=== PATIENT | female | born 1940 | race Caucasian/White ===

== ENCOUNTER 2019-03-08 19:06 | Inpatient (IN) ==
[2019-03-08] MEDS ORDERED: TORADOL IV ONE (21:07)
[2019-03-08] MEDS ORDERED: BENADRYL IV ONE (21:08)
[2019-03-08] MEDS ORDERED: COMPAZINE IV ONE (21:08)
[2019-03-08 21:27] LABS: BASO# 0.02 X1000 (0.0-0.2); BASO% 0.2 % (0.0-0.8); HEMATOCRIT 39.2 % (37.0-47.0); HEMOGLOBIN 13.8 g/dL (12.0-16.0); IMM GRAN# 0.02 X1000 (0.0-0.04); IMM GRAN% 0.2 % (0.0-0.5); LYMPH# 1.45 X1000 (1.2-3.4); LYMPH% 14.7 % (20.5-51.1); MCH 29.2 PG (27-31); MCHC 35.2 g/dL (33-37); MCV 83.1 FL (81-99); MONO# 0.32 X1000 (0.11-0.59); MONO% 3.2 % (1.7-9.3); NEUT# 8.08 X1000 (1.4-6.5); NEUT% 81.7 % (42.2-75.2); PLT 488 X1000 (130-400); RBC 4.72 XMIL (4.2-5.4); RDW 13.4 % (11.5-14.5); WBC 9.89 X1000 (4.8-10.8)
[2019-03-08 22:03] LABS: CALCIUM 10.9 mg/dL (8.8-10.2); POTASSIUM 3.8 mmol/L (3.5-5.1)
[2019-03-08 23:28] LABS: URINE SOURCE CATH
[2019-03-08 23:37] LABS: BILIRUBIN URINE NEGATIVE (NEGATIVE); BLOOD URINE NEGATIVE (NEGATIVE); COLOR YELLOW; GLUCOSE URINE NEGATIVE (NEGATIVE); KETONE URINE 40 mg/dL (NEGATIVE); LEUKOCYTES URINE NEGATIVE (NEGATIVE); NITRITE URINE NEGATIVE (NEGATIVE); PH URINE 5.5; PROTEIN URINE TRACE mg/dL (NEGATIVE); SP GRAVITY URINE 1.013; TURBIDITY URINE CLEAR (CLEAR); UROBILINOGEN URINE NORMAL (NORMAL)
[2019-03-08 23:40] LABS: UR EPITHELIAL CELLS <10 /HPF (<10); URINE BACTERIA NEGATIVE /HPF; URINE RBC <10 /HPF (<10); URINE WBC <10 /HPF (<10)
--- NOTE | 2019-03-08 23:57 | PROVIDER DOCUMENTATION ---
This chart was entered by Kiara Lara Scribe, acting as scribe for Caryn Hill MD. HPI-Headache - General Chief Complaint: Headache Stated Complaint: MIGRAINE/CONFUSSED Time Seen by Provider: 03/08/19 20:48 Source: patient Allergies/Adverse Reactions: Patient Allergies Allergy/AdvReac Type Severity Reaction Status Date / Time No Known Allergies Allergy Verified 03/08/19 21:09 Home Medications: Home Medication List Medication Instructions Recorded Confirmed Last Taken Type Unobtainable [Home Meds 03/08/19 03/08/19 Unknown History Unobtainable] - History of Present Illness-Headache Nature of Presenting Problem: 78 yof presents w/ family at bedside c/o pt family historian. pt has long hx of migraines and has had 1 migraine/day intermittent for 1 month. pt woke up other day from migraine and had bloodshot eye. pt confusion is worsening, family sts. pt wants to talk sometimes but cannot form words but after a few min can speak. pt is sensitive to light. 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 pt had recent mri w/dr. martinez and was normal. pt sts that she has pain in top of head rad down neck and is nauseous. pt denies fever, v/d. pt has hx of htn, takes 4 diff rx for htn. Review of Systems - Adult - REVIEW OF SYSTEMS - ADULT Constitutional: reports: no symptoms reported. denies: chills, fever, fatique Eyes: reports: see HPI, eye pain (photophobic). denies: discharge, dry eyes, blurred vision Ears, Nose, Mouth & Throat: reports: no symptoms reported. denies: ear pain, nose pain, throat pain Cardiovascular: reports: no symptoms reported. denies: chest pain, heart murmur, poor circulation Respiratory: reports: no symptoms reported. denies: cough, shortness of breath, wheezing Gastrointestinal: reports: see HPI, nausea. denies: abdominal pain, diarrhea, rectal bleeding, vomiting Genitourinary: reports: no symptoms reported Musculoskeletal: reports: no symptoms reported Integumentary: reports: no symptoms reported Neurological: reports: see HPI, headache/migraines, other (confusion). denies: loss of balance, numbness, seizure, syncope, tremors Psychiatric: reports: no symptoms reported Endocrine: reports: no symptoms reported Hematologic/Lymphatic: reports: no symptoms reported Allergic/Immunologic: reports: no symptoms reported All Other Systems: Reviewed and Negative Past History - Adult - PAST MEDICAL HISTORY-ADULT Review of Records: reports: Old Records Reviewed, Nursing Assessment Review, Medications Reviewed, Social history reviewed & non-contributory. Major Childhood Illnesses: reports: denies history Cardiovascular: reports: HTN Respiratory: reports: denies history Gastrointestinal: reports: denies history Obstetrical/Gynecological: reports: denies history Genitourinary: reports: denies history Musculoskeletal: reports: denies history Neurological: reports: headaches/migraines Endocrine/Immune: reports: denies history Other Conditions: reports: denies history - IMMUNIZATION STATUS Childhood Immunizations: See Nurse Assessment Flu Vaccine: See Nurse Assessment - FAMILY HISTORY Family History: reviewed, not pertinent Physical Exam- Neurological - Physical Exam-Neuro Initial Vital Signs Reviewed: Yes General Appearance: alert, mild distress, slow to respond. negative: lethargic, obtunded, combative Eye Exam: bilateral eye: normal inspection, PERRL, EOMI HENMT: normocephalic/atraumatic, moist mucous membranes, normal ENT inspection, TMs normal, pharynx normal Head Injury: no evidence of injury. negative: ecchymosis, flap, lacerations Neck: non-tender, full range of motion, supple, normal inspection Respiratory: chest non-tender, lungs clear, normal breath sounds Cardiovascular: normal peripheral pulses, regular rate, rhythm, no edema, no gallop, no JVD, systolic murmur. negative: no murmur, JVD, bradycardia, tachycardia Abdominal Exam: normal bowel sounds, non tender, soft Lymphatic: no adenopathy Peripheral Pulses: radial (R): 2+, radial (L): 2+ Extremity: normal range of motion, non-tender, normal inspection stem setter Exam: normal hearing, normal speech, PERRL. negative: abnormal eye position, abnormal speech, facial asymmetry, facial droop, gaze palsy, tongue deviation to R, tongue deviation to L Coordination/Gait: negative: normal finger to nose Motor/Sensory: no motor deficit, no sensory deficit, no pronator drift. negative: pronator drift (R), pronator drift (L), sensory deficit Neurologic: stem setter II-XII nml as tested, grossly normal, no motor/sensory deficits, negative romberg's sign, other (Pt was not oriented at first but after few mins began answering questions and becoming more oriented). negative: EOM palsy, facial droop, focal weakness Integumentary: normal color, normal turgor, warm/dry Psych/Mental Status: normal mood/affect, normal thought content, normal thought process, oriented x 3, tearful. negative: anxious, disheveled, paranoid - Glascow Coma Scale Best Eye Response: (4) open spontaneously Best Verbal Response: (5) oriented Best Motor Response: (6) obeys commands Total Glascow Score: 15 Progress - PLAN OF CARE/RESULTS Progress/Plan/Lab Results: Vital Signs - 8 hr 03/08/19 19:18 03/08/19 22:25 Temperature 97.5 F L Pulse Rate 96 H 89 Respiratory Rate 18 20 Blood Pressure 182/85 163/93 O2 Sat by Pulse Oximetry 98 99 Laboratory Results - last 24 hr 03/08/19 03/08/19 03/08/19 21:05 21:05 21:05 WBC 9.89 RBC 4.72 Hgb 13.8 Hct 39.2 MCV 83.1 MCH 29.2 MCHC 35.2 RDW Std Deviation 13.4 Plt Count 488 H MPV 10.0 Immature Gran % (Auto) 0.2 Neut % (Auto) 81.7 H Lymph % (Auto) 14.7 L Appling % (Auto) 3.2 Eos % (Auto) 0.0 Baso % (Auto) 0.2 Immature Gran # (Auto) 0.02 Neut # (Auto) 8.08 H Lymph # (Auto) 1.45 Appling # (Auto) 0.32 Eos # (Auto) 0.00 Baso # (Auto) 0.02 Sodium 126 L Potassium 3.8 Chloride 86 L Carbon Dioxide 19 L Anion Gap 21 BUN 37 H Creatinine 2.0 H Estimated GFR/1.73 m2 24 BUN/Creatinine Ratio 19 Glucose 143 H Calculated Osmolality 265 Calcium 10.9 H Plasma Lactate 1.4 Urine Source Urine Color Urine Turbidity Urine pH Ur Specific Mcleod Urine Protein Ur Glucose (Stick) Ur Ketones (Stick) Urine Blood Urine Nitrite Urine Bilirubin Urobilinogen Dipstick Urine Leukocytes Urine WBC (Auto) Urine RBC (Auto) U Epithel Cells (Auto) Urine Bacteria (Auto) 03/08/19 23:15 WBC RBC Hgb Hct MCV MCH MCHC RDW Std Deviation Plt Count MPV Immature Gran % (Auto) Neut % (Auto) Lymph % (Auto) Appling % (Auto) Eos % (Auto) Baso % (Auto) Immature Gran # (Auto) Neut # (Auto) Lymph # (Auto) Appling # (Auto) Eos # (Auto) Baso # (Auto) Sodium Potassium Chloride Carbon Dioxide Anion Gap BUN Creatinine Estimated GFR/1.73 m2 BUN/Creatinine Ratio Glucose Calculated Osmolality Calcium Plasma Lactate Urine Source CATH Urine Color YELLOW Urine Turbidity CLEAR Urine pH 5.5 Ur Specific Mcleod 1.013 Urine Protein TRACE A Ur Glucose (Stick) NEGATIVE Ur Ketones (Stick) 40 A Urine Blood NEGATIVE Urine Nitrite NEGATIVE Urine Bilirubin NEGATIVE Urobilinogen Dipstick NORMAL Urine Leukocytes NEGATIVE Urine WBC (Auto) <10 Urine RBC (Auto) <10 U Epithel Cells (Auto) <10 Urine Bacteria (Auto) NEGATIVE Orders Category Date Time Status CT HEAD W/O CONTRAST [CT] Stat Exams 03/08/19 22:32 Taken cxr [CHEST-2 VIEWS] [RAD] Stat Exams 03/08/19 21:30 Taken BMP [BASIC METABOLIC PANEL] [CHEM] Stat Lab 03/08/19 21:05 Completed CBC WITH ELECTRONIC DIFF [HEME] Stat Lab 03/08/19 21:05 Completed LACTATE, PLASMA [CHEM] Stat Lab 03/08/19 21:05 Completed URINALYSIS W/POSS RFLX CULT [URINALYSIS] Stat Lab 03/08/19 23:15 Completed Diphenhydramine [Benadryl] Med 03/08/19 21:08 Discontinued 25 mg IV NOW ONE Ketorolac [Toradol] Med 03/08/19 21:07 Discontinued 30 mg IV NOW ONE Prochlorperazine [Compazine] Med 03/08/19 21:08 Discontinued 10 mg IV NOW ONE Patient with intermittent AMS, elevated creatinine and hyponatremia. will admit to hospital for further assessment. Result Diagrams: 03/08/19 21:05 03/08/19 21:05 - REASSESSMENT Reassessment #1 Time Reassessed: 22:34 Status: unchanged - CONSULTS/PCP/HOSPITALIST Notification #1 *Consult/PCP/Hospitalist*: Dr. Jagdish Maria Time Discussed: 23:56 Consult Disposition: Admit (Hx, PE and pt care discussed, accepted.) Departure - Departure Date of Disposition Decision: 03/08/19 Time of Disposition Decision: 23:55 DIAGNOSIS: Elevated serum creatinine, Hyponatremia Altered mental status Qualifiers: Altered mental status type: disorientation Qualified Code(s): R41.0 - Disorientation, unspecified Disposition: ADMITTED INPATIENT 09 Certified Medical Emergency: Emergent Condition: Stable Referrals and Follow-Ups: Josue Martinez MD [Primary Care Provider] - - Critical Care Note This patient required my direct & personal management of CC.: No Attestation - Physician/ SALINA Attestation Patient care was provided by Advanced Practice Provider:: No The physician spent face to face time with patient:: Yes Advanced Practice Provider documentation review:: Supervising physician onsite and consulted in the evaluation and care of this patient. The physician did have a face to face encounter with the patient. This chart was documented by the indicated scribe, (Kiara Lara Scribe) and accurately reflects the services I performed and decisions made by me, Caryn Lockett MD, as attested by the provider's signature.
--- NOTE | 2019-03-09 00:50 | HISTORY AND PHYSICAL ---
PRIMARY CARE PHYSICIAN: Dr. Moncho Martinez. CHIEF COMPLAINT: Altered mental status. HISTORY OF PRESENTING ILLNESS: A 78-year-old female with a history of hypertension and migraines, who had presented to the emergency department with 1-day history of having spells where she got confused and was not making any sense. She was brought to the emergency department and initially she was confused, however, she became more alert and was responsive. She states that she has been having these migraines, she is sensitive to sounds and light, and it seems to never go away. She had like a previous workup done, including MRI recently that was unremarkable, as per patient and family. At time of my examination, she had denied any fever, chills, nausea, vomiting, diarrhea, hemoptysis, melena, but complained of headache and not feeling well. The patient also admitted to having a fall about several weeks ago and seems to have some bruising on her left hip region. PAST MEDICAL HISTORY: Includes hypertension and migraines. PAST SURGICAL HISTORY: Cholecystectomy, hysterectomy, thyroid surgery, back surgery. ALLERGIES: No known drug allergies. CURRENT MEDICATIONS: Include enalapril, amlodipine, Celexa, and Synthroid. SOCIAL HISTORY: No history of smoking. Admits to social alcohol use. Denies any illicit drug use. FAMILY HISTORY: No history of coronary disease. REVIEW OF SYSTEMS: Fourteen-point review of systems is as in HPI. Other systems negative. PHYSICAL EXAMINATION: GENERAL: Cooperative, friendly female, she is resting more comfortably now. VITAL SIGNS: Temperature 97.5 degrees, pulse 96, respiration 18, blood pressure 182/85. Repeat 163/93. HEENT: Atraumatic, normocephalic. Extraocular movements intact. PERRLA. NECK: No masses. CHEST: Clear to auscultation. CARDIOVASCULAR: Regular rate and rhythm. ABDOMEN: Soft, positive bowel sounds. EXTREMITIES: No edema. NEUROLOGIC: She is awake, alert, oriented x3. Strength 5/5 in all extremities. GENITOURINARY: No bladder distention. SKIN: Warm. LABORATORIES AND STUDIES: WBCs 9.89, hemoglobin 13.8, hematocrit 39.2, platelets 488,000. Sodium 126, potassium 3.8, chloride 86, CO2 is 19, BUN is 37, creatinine is 2.0. Glucose is 143. CT of the head was read as unremarkable. ASSESSMENT: A 78-year-old female with a history of hypertension and migraines, who presented to emergency department due to mental status changes. Patient, apparently, was confused and was having spells where she would get confused and resume normal function. She states that she has been having a migraine for several days. She was evaluated in the emergency department, and due to her presenting symptoms, it was thought that she would require admission for further management. 1. Altered mental status. 2. Complicated migraines. 3. Dehydration. 4. Depression/anxiety. 5. Acute kidney injury. 6. Status post recent fall with left hip bruising. PLAN: 1. We will admit patient to medical floor with telemetry. 2. Continue with neuro checks. 3. We will obtain previous MRI report and consult Neurology. 4. We will continue with IV fluids and adequate hydration. 5. We will monitor her renal function. 6. We will check an x-ray of her left hip. 7. Will start home medications. 8. We will put patient on DVT prophylaxis, SCDs. 9. We will continue to follow and reassess. Make further recommendation based on patient's clinical course. cc: Jagdish Maria MD MTDD
[2019-03-09 04:07] LABS: URINE SOURCE CLEAN CATCH
[2019-03-09 04:13] LABS: BILIRUBIN URINE NEGATIVE (NEGATIVE); BLOOD URINE NEGATIVE (NEGATIVE); COLOR YELLOW; KETONE URINE 40 mg/dL (NEGATIVE); LEUKOCYTES URINE NEGATIVE (NEGATIVE); NITRITE URINE NEGATIVE (NEGATIVE); PH URINE 5.5; PROTEIN URINE TRACE mg/dL (NEGATIVE); SP GRAVITY URINE 1.014; TURBIDITY URINE CLEAR (CLEAR); UROBILINOGEN URINE NORMAL (NORMAL)
[2019-03-09 04:26] LABS: GLUCOSE URINE NEGATIVE (NEGATIVE); UR EPITHELIAL CELLS <10 /HPF (<10); URINE BACTERIA NEGATIVE /HPF; URINE RBC <10 /HPF (<10); URINE WBC <10 /HPF (<10)
[2019-03-09] MEDS: NS 1,000 ML IV SCH ×2 (04:39→16:31)
--- NOTE | 2019-03-09 05:51 | Diag Imaging Result Doc PS360 ---
EXAM: CHEST-2 VIEWS HISTORY: confusion TECHNIQUE: Chest two views COMPARISON: None. FINDINGS: The lungs are hyperexpanded. The heart is not enlarged. The vessels are not distended. There are no infiltrates. No pleural effusions. IMPRESSION: Emphysema Electronically signed by Adolfo Cisneros 03/09/2019 5:49 AM
--- NOTE | 2019-03-09 06:05 | Diag Imaging Result Doc PS360 ---
EXAM: XRAY HIP UNILATERAL LT HISTORY: left hip pain, fall TECHNIQUE: Right hip, two views COMPARISON: None. FINDINGS: No fracture. No dislocation. IMPRESSION: No acute bony injury. Electronically signed by Adolfo Cisneros 03/09/2019 6:03 AM
--- NOTE | 2019-03-09 07:24 | Diag Imaging Result Doc PS360 ---
EXAM: CT HEAD W/O CONTRAST HISTORY: AMS TECHNIQUE: CT head without contrast COMPARISON: 05/04/2018 FINDINGS: No parenchymal hemorrhage. No epidural or subdural hematoma. No subarachnoid hemorrhage. There is mild atrophy. Mild chronic ischemic changes most pronounced posteriorly in the right parietal lobe. This is similar to the prior exam. No mass identified on this noncontrasted exam. No hydrocephalus. No sinus opacification. IMPRESSION: 1.No hemorrhage 2.Chronic ischemic changes. A preliminary report was given at 11:17 PM on 03/08/2019 This exam was performed using automated exposure control, adjustment of mA or kV according to patient size, and/or use of iterative reconstruction technique. Electronically signed by Adolfo Cisneros 03/09/2019 7:22 AM
[2019-03-09 09:43] LABS: ALB/GLOB RATIO 1.6; ALBUMIN 4.5 g/dL (3.5-5.0); CALCIUM 10.6 mg/dL (8.8-10.2); CREATININE 1.6 mg/dL (0.5-0.9); POTASSIUM 4.6 mmol/L (3.5-5.1); TOTAL BILIRUBIN 0.51 mg/dL (0.20-1.00); TOTAL PROTEIN 7.4 g/dL (6.3-8.3)
--- NOTE | 2019-03-09 12:24 | Diag Imaging Result Doc PS360 ---
EXAM: US RENAL 2 (RETROPER) COMPLETE HISTORY: karolina/arf TECHNIQUE: Renal ultrasound COMPARISON: None. FINDINGS: The right kidney measures 8.1 x 3.7 x 4.3 cm. Normal renal echotexture. Borderline mild cortical thinning. There is an 10 mm cyst in the lower pole. No solid mass. No stone or hydronephrosis. Urinary bladder is moderately distended and appears normal. The left kidney measures 8.6 x 3.6 x 4.8 cm. Normal renal echotexture. Borderline mild cortical thinning. No stone or hydronephrosis. No renal mass. IMPRESSION: Borderline mild renal cortical thinning, otherwise negative exam. Electronically signed by Adolfo Cisneros 03/09/2019 12:22 PM
--- NOTE | 2019-03-09 12:32 | CONSULTATION ---
DATE OF CONSULTATION: 03/09/2019 Ms. Cooper is 78 years old and she has had some recent neurologic changes. History from the patient is a little bit difficult and that may be because of her recent impairment. History from the patient, attentive daughters at the bedside, review of hospital record, and earlier phone call discussion with Dr. Martinez is that she has had lifelong history of migraine, probably onset in teens. Headaches have been more prominent in recent years. Headache is usually vertex, midline, posterior with throbbing and pounding, lasting a day or so. Headaches are associated with nausea and photophobia. Frequency of headache is difficult to retort operator from her history but seems to be at least once or twice a week in recent months. Headache was more frequent after she abruptly stopped caffeine with a new diet just over a month ago. There is family history of headache including the two daughters at the bedside. There is past history of head injury but apparently never definite concussion. Last head injury was at least a few years ago. There is not history of more recent injury. She has never had diagnosed stroke or seizure. There is no history of illicit drug use. She has seemed different personality-thornton. She has made some mistakes with simple tasks, particularly tasks requiring attention, including turning on the wrong burner on the stove. She has had a little bit of unsteady gait and fell a week or so ago with left thigh bruise but no more significant injury. Sometimes she seems suddenly blank, inattentive, not responding verbally. Sometimes, daughters have seen her have a blank stare for several minutes. During that time, she may look from one person to another but she seemed unaware of surroundings and did not seem to attempt to communicate. She has not fallen during those episodes. She has had some urinary incontinence but daughters are not sure that is new or directly related to these episodes. These episodes last a few minutes and then she seems to struggle to regain her ability to speak over another several minutes, and then she seems back to baseline. Family has not noticed rigidity, limb jerking, or other seizure like feature with these episodes. Sometimes she is sleepy but she does not seem to be consistently sleepy after these episodes. Workup here includes lab showing sodium 126, BUN 37 which is above her baseline, calcium 10.9. Noncontrast CT was unremarkable. Prior to admission, she had recent brain MRI showing expected age-related changes and nothing focal or acute. She has been afebrile. Heart rate has ranged from 90s on presentation yesterday down to 70s now. Systolic blood pressures have ranged 180s on presentation down to 130s-150s range in the last 12 hours. There is reported past history of hypertension, depression, anxiety, migraine as above. On exam, Ms. Cooper is initially awake, alert, attentive. She answered questions tangentially, often with rambling thoughts and very seldom answered precisely. Speech is not dysarthric. Language function is intact on brief bedside testing. Remote memory is good. Head and neck are unremarkable. Visual robert are full. Extraocular movements are full. Facial motility is symmetric. She did well on [id number] testing bilaterally. Limb tone is symmetric. Power is symmetric in the limbs and seems normal. Plantar response is silent bilaterally. I did not test her gait. Ankle reflexes are trace bilaterally. Wrist reflexes are 1+ bilaterally. During my time at the bedside, as I was having conversation with her, she became suddenly inattentive, staring straight ahead, not responding to my questions. Limb tone remained symmetric. There was no rigidity or jerking movement. I did not see any facial twitching, tongue movement, lip smacking or other automatism. Eyes were open and gaze remained conjugate. She looked around the room randomly. This behavior continued for about 8 minutes and then resolved spontaneously. Within just a few more minutes, she was speaking appropriately and carrying on conversation. She remembered the last thing I had asked her before this episode but she reports she did not remember anything that I said to her during the episode. IMPRESSION: 1. Behavior consistent with partial seizure. 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 This could account for personality changes, unsteady gait, falls, and appearance of forgetfulness. We will get electroencephalogram and plan to treat her for seizure. Reason for recent onset seizure in this age group is statistically most likely stroke, but there is no history of that and recent imaging is unremarkable. I wonder if she might have been having unrecognized partial seizures for a longer time. 2. Longstanding history of episodic headache, typical of migraine with usual family history noted. Recent increased headache frequency following abrupt cessation of caffeine is typical. 3. Question of mild cognitive impairment. We can assess her cognitive function with more validity after we make sure she is not having seizures. Thanks for asking neurology to see Ms. Cooper. cc: MD Moncho Pedraza III, MD MTDD
[2019-03-09] MEDS ORDERED: CEREBYX IV ONE ×2 (15:47→16:00)
[2019-03-09] MEDS ORDERED: NS IV ONE (16:00)
[2019-03-09] MEDS ORDERED: RELPAX PO ONE (17:49)
[2019-03-09] MEDS: TYLENOL PO PRN (17:49)
--- NOTE | 2019-03-09 21:12 | PROGRESS NOTE ---
DATE: 03/09/2019 SUBJECTIVE: The patient was admitted overnight with alteration of mental status. Laboratory data was significant for hyponatremia with a sodium of 126, and elevated BUN and creatinine of [address] scan of the head returned with chronic changes. The patient was started on IV fluids. This morning, upon my arrival, patient was in bed. During our conversation, she had an acute episode of inattentiveness. Symptoms were consistent with a partial seizure. Neurology was consulted. Upon Dr. Barcenas's evaluation this afternoon, the patient also had an additional episode. EEG was performed, confirming the diagnosis of a partial seizure. This evening, upon my arrival, patient again was sitting in bed with family surrounding. During our discussion, patient complained of a headache. She had an additional episode lasting several minutes. Cerebyx IV therapy had been initiated. The patient denies current fevers, chills, nausea, vomiting, shortness of breath, or chest discomfort. She denies recent head trauma. She denies any current infectious symptoms. OBJECTIVE: Vital Signs: T-max 98.0 degrees, heart rate 70 to 96, respirations 16 to 20, blood pressure 131 to 182 over 58 to 93. General: Well nourished, well developed, in no acute distress. Cardiovascular: Regular rate and rhythm. No significant murmurs, rubs, or gallops. Pulmonary: Clear to auscultation bilaterally. Abdomen: Soft, nontender, nondistended. Positive bowel sounds. Extremities: Moves all extremities well. No significant clubbing, cyanosis, or edema. Neurologic: Within normal limits with exception of the episode of inattentiveness. LABORATORY DATA: Sodium 128, potassium 4.6, chloride 90, bicarbonate 24, BUN 38, creatinine 1.6, glucose 129, calcium 10.6, total bilirubin 0.51, total protein 7.4, albumin 4.5, alkaline phosphatase 75, AST 31, ALT 17, TSH 5.62. ASSESSMENT AND PLAN: 1. Alteration of mental status secondary to partial seizures: This is an interesting diagnosis in a 78-year-old. Recent CT scans x2 and MRI suggested no evidence of acute stroke. Patient did have head trauma approximately 2 years ago. With the timing, this seems less likely. Additionally, idiopathic, metabolic, and medication associated seizure disorder will be considered. Dr. Barcenas has recommended starting Cerebyx intravenously. We will follow this with Lamictal as an outpatient. We will monitor the patient's clinical condition overnight. 2. Headaches: These appear to be associated with the seizures. Certainly, this simply could be seizure associated, but also concern for precipitating migraines. The patient was provided a dose of Relpax this evening with some improvement. For now, we will continue supportive care. 3. Hyponatremia: Patient's sodium has improved from 126 to 128. We will continue intravenous fluids. 4. Acute renal failure: The patient's creatinine has improved from 2.0 to 1.6. We will continue hydration. 5. Reflux disease: We will continue the patient on pantoprazole therapy. 6. Hypertension: The patient's blood pressure has been labile since hospitalization. We will resume amlodipine therapy. We will continue to hold enalapril and hydrochlorothiazide in the setting of renal dysfunction. We will follow this. 7. Hypothyroidism: The patient's TSH is slightly elevated. At this point, I am hesitant to make any changes. We will continue levothyroxine 88 mcg daily. 8. Depression/anxiety: We will resume citalopram and as needed alprazolam. 9. Fluids, electrolytes, nutrition: We will monitor electrolytes. Normal saline at 75 mL an hour. Regular diet. 10. Prophylaxis. The patient will be continued on sequential compression devices. 11. Disposition: At this point, the patient continues to require long-term care in a hospital setting. We will plan discharge home once appropriate. cc: Moncho Martinez MD
[2019-03-09] MEDS: PROTONIX PO SCH (21:43)
[2019-03-09] MEDS: NORVASC PO SCH (21:43)
[2019-03-10] MEDS: NS 1,000 ML IV SCH ×2 (05:09→18:29)
[2019-03-10] MEDS: XANAX PO PRN ×2 (05:10→15:39)
[2019-03-10] MEDS: CEREBYX 200 MG in NS 50 ML IV SCH ×2 (05:11→18:27)
[2019-03-10] MEDS ORDERED: CEREBYX IV SCH (06:00)
[2019-03-10 07:21] LABS: BASO# 0.06 X1000 (0.0-0.2); BASO% 0.7 % (0.0-0.8); EOS# 0.11 X1000 (0.0-0.7); EOS% 1.3 % (0.0-10.0); HEMATOCRIT 38.5 % (37.0-47.0); HEMOGLOBIN 13.2 g/dL (12.0-16.0); IMM GRAN# 0.04 X1000 (0.0-0.04); IMM GRAN% 0.5 % (0.0-0.5); LYMPH# 2.57 X1000 (1.2-3.4); LYMPH% 29.3 % (20.5-51.1); MCH 29.3 PG (27-31); MCHC 34.3 g/dL (33-37); MCV 85.4 FL (81-99); MONO# 0.91 X1000 (0.11-0.59); MONO% 10.4 % (1.7-9.3); NEUT# 5.07 X1000 (1.4-6.5); NEUT% 57.8 % (42.2-75.2); PLT 439 X1000 (130-400); RBC 4.51 XMIL (4.2-5.4); RDW 13.7 % (11.5-14.5); WBC 8.76 X1000 (4.8-10.8)
[2019-03-10 07:44] LABS: CALCIUM 9.9 mg/dL (8.8-10.2); CREATININE 1.3 mg/dL (0.5-0.9); POTASSIUM 3.7 mmol/L (3.5-5.1)
[2019-03-10] MEDS: SYNTHROID PO SCH (08:09)
[2019-03-10] MEDS: CELEXA PO SCH (08:09)
[2019-03-10] MEDS: NORVASC PO SCH ×2 (08:09→20:49)
[2019-03-10] MEDS ORDERED: CEREBYX IV ONE (10:47)
--- NOTE | 2019-03-10 10:52 | PROGRESS NOTE ---
DATE: 03/10/2019 SUBJECTIVE: Ms. Cooper has not had protracted partial seizure recognized since yesterday, but she has continued to have occasional brief episodes recognized by family. In between episodes, she has seemed more confused but has not appeared groggy or sedated. She has been alert and attentive at times. She complained of headache yesterday but not today. EEG showed seizure. OBJECTIVE: On my exam, she is awake, alert, briefly attentive. She did not answer simple questions. I thought that she might have had a brief partial seizure during my time at the bedside. She was fidgeting with her bed clothes. At times, she seemed inattentive and sometimes inappropriate, turning on the TV volume just after I turned it off. IMPRESSION: 1. Clearly she has had partial seizures. I do not know if this can explain all of her trouble, or not. We need to increase the phenytoin dose, check level, and follow clinically. Eventually, lamotrigine may be a better choice long-term. I reviewed that discussion with at the bedside today. 2. There is still question of baseline cognitive impairment. 3. Migraine. Thanks for asking Neurology to see Ms. Cooper. cc: MD Moncho Pedraza III, MD MTDD
[2019-03-10] MEDS ORDERED: CEREBYX 500 MG in NS 50 ML IV ONE (11:00)
--- NOTE | 2019-03-10 13:08 | EEG REPORT ---
DATE: 03/09/2019 EKG #: [id number]. DATE OF STUDY: 03/09/2019. COMMENT: This is a digitally recorded EEG done portably at the bedside on a 78-year-old patient with recent mental changes and clinically apparent partial seizures. FINDINGS: Most of the record is recorded in ictal and postictal state. There was initially generalized high amplitude slowing with occasional sharp wave, rhythmic slowing at 2.5 hertz. This gradually became less organized and was more persistent over the right hemisphere than the left. Later in the record, there was EEG recorded without epileptiform discharges or electrographic seizure, and that showed generalized slowing, polymorphic and rhythmic theta and delta symmetrically across the hemispheres with no sustained posterior rhythm identified. Stage II sleep was not recorded. Photic stimulation did not alter the record. INTERPRETATION: Abnormal EEG because of partial and generalized seizures, likely right hemisphere focus. cc: MD Moncho Pedraza III, MD MTDD
[2019-03-10] MEDS ORDERED: XANAX PO PRN (20:25)
[2019-03-10] MEDS: PROTONIX PO SCH (20:49)
--- NOTE | 2019-03-10 22:29 | PROGRESS NOTE ---
DATE: 03/10/2019 SUBJECTIVE: Upon my arrival this morning, the patient was noted to have considerable confusion. She was, however, able to recognize me and was alert to person and place. Throughout the day, the patient continued loading dose of Cerebyx. She was treated with as-needed Xanax. Per family, throughout the day, her confusion has increased. She has noted increased agitation. The only time she was not agitated during the day was after the dose of Xanax. She has demonstrated no evidence of fevers, chills, nausea, vomiting, shortness of breath, or chest discomfort. OBJECTIVE: Vital signs: T-max 98.1 degrees, heart rate 58 to 96, respirations 13 to 19, blood pressure 120 to 154 over 56 to 63. General: Well nourished, well developed, no acute distress. Cardiovascular: Regular rate and rhythm. No significant murmurs, rubs, or gallops. Pulmonary: Clear to auscultation bilaterally. Abdomen: Soft, nontender, nondistended. Positive bowel sounds. Extremities: Moves all extremities well. No significant clubbing, cyanosis, or edema. Dermatologic: No evidence of rash. LABORATORY DATA: White blood cell count 8.76, hemoglobin 13.2, hematocrit 38.5, platelet count 439,000. Sodium 137, potassium 3.7, chloride 99, bicarb 26, BUN 22, creatinine 1.3, glucose 98, calcium 9.9. ASSESSMENT AND PLAN: 1. Alteration of mental status secondary to partial seizures. -- Diagnosis of partial seizures was confirmed yesterday per EEG. Throughout the day today, the patient's confusion has increased. The question is raised whether this is medication associated or seizure associated. For now, we will continue loading her current medications per Dr. Barcenas's recommendations. We will continue as-needed Xanax but decreased to 0.125 mg. If the patient's symptoms persist tomorrow, we will consider whether repeat EEG for further neurological evaluation is appropriate. 2. Headaches. -- This likely is seizure associated. She has achieved improvement since initiating the Cerebyx and with the use of Relpax. 3. Hyponatremia. -- Sodium has improved from 128 to 137. We will continue IV fluids for now. 4. Acute renal failure. -- The patient's creatinine has improved from 1.6 to 1.38. Once again, we will continue IV fluids. 5. Reflux disease. -- We will continue pantoprazole therapy. 6. Hypertension. -- The patient's enalapril and hydrochlorothiazide have been held. Amlodipine has been continued. Blood pressure is slightly elevated. Once the patient's renal failure returned to baseline, we will consider whether resuming enalapril is appropriate. 7. Hypothyroidism. -- TSH returned slightly elevated. At this point, I am hesitant to make any changes in her medication. We will continue her home dose of levothyroxine. 8. Depression/anxiety. -- We will continue the patient on home dose of citalopram. As above, Xanax 0.125 mg every 4 hours has been added as needed for agitation or anxiety. 9. Disposition. -- At this point, the patient continues to require [facility] care in a hospital setting. We will plan discharge home once appropriate. cc: Moncho Martinez MD
[2019-03-11] MEDS: NS 1,000 ML IV SCH ×4 (02:35→18:58)
[2019-03-11] MEDS: CEREBYX 200 MG in NS 50 ML IV SCH ×2 (06:22→17:16)
[2019-03-11] MEDS: XANAX PO SCH ×3 (08:54→17:15)
[2019-03-11] MEDS: CELEXA PO SCH (08:54)
[2019-03-11] MEDS: SYNTHROID PO SCH (08:54)
[2019-03-11] MEDS: NORVASC PO SCH (08:54)
[2019-03-11 09:10] LABS: URINE SOURCE CATH
[2019-03-11 09:20] LABS: BILIRUBIN URINE NEGATIVE (NEGATIVE); BLOOD URINE NEGATIVE (NEGATIVE); COLOR YELLOW; GLUCOSE URINE NEGATIVE (NEGATIVE); KETONE URINE TRACE mg/dL (NEGATIVE); LEUKOCYTES URINE NEGATIVE (NEGATIVE); NITRITE URINE NEGATIVE (NEGATIVE); PH URINE 6.5; PROTEIN URINE NEGATIVE (NEGATIVE); SP GRAVITY URINE 1.002; TURBIDITY URINE CLEAR (CLEAR); UR EPITHELIAL CELLS <10 /HPF (<10); URINE BACTERIA NEGATIVE /HPF; URINE RBC <10 /HPF (<10); URINE WBC <10 /HPF (<10); UROBILINOGEN URINE NORMAL (NORMAL)
--- NOTE | 2019-03-11 12:08 | PROGRESS NOTE ---
DATE: 03/11/2019 SUBJECTIVE: Family has not recognized definite seizure. She was very restless overnight and was discovered to have a full bladder. A catheter was placed. She has continued with prominent restlessness. Family believes she seems more confused today. Further history obtained from by speaker phone at the bedside and from daughters at the bedside is that she has had some forgetfulness for perhaps a year. There is also possibility of alprazolam use exceeding what we had been aware of. Her alprazolam dose here is now scheduled and any component of benzodiazepine withdrawal should be controlled. There is not a history of head injury, stroke, neck stiffness, fever or evidence of central nervous system infection. We will get her EEG repeated to make sure there is not evidence of continued seizure. Phenytoin level is 23, and I am optimistic seizure is controlled. If not, we will need to consider adding a 2nd seizure drug. OBJECTIVE: On exam, she is awake and alert, restless, mostly inattentive. When I did get her attention, she followed simple commands consistently. She held up fingers correctly. She communicated with me briefly and then when not vigorously involved in conversation, she became restless and appeared to be fixated on the bladder catheter. Discussed with Dr. Martinez and discussed at length with family at the bedside. PLAN: Further plans will depend on the EEG report and on her clinical course. Thanks for asking Neurology to see Ms. Cooper. cc: MD Moncho Pedraza III, MD MTDD
[2019-03-11] MEDS ORDERED: HALDOL IM ONE ×2 (13:34→14:37)
--- NOTE | 2019-03-11 17:05 | PROGRESS NOTE ---
DATE: 03/11/2019 ADDENDUM: Ms. Cooper continued restless. However, the daughters report she was speaking in complete sentences earlier. EEG this afternoon shows moderate generalized slowing with no definite epileptiform discharge and certainly no further electrographic seizure to explain her altered mental state. I think we should continue phenytoin at current dose, check level if she appears sedated. I hope she can sleep and be more alert and more intact mentally later in the weekend. She seemed to get good response to haloperidol and that could be repeated if needed to control agitation. Thanks again for asking Neurology to see Ms. Cooper. I discussed recent suggestions with daughters. cc: MD Moncho Pedraza III, MD MTDD
--- NOTE | 2019-03-11 17:49 | EEG REPORT ---
DATE: 03/11/2019 EEG NUMBER: [id number] COMMENT: This is a digitally recorded EEG on a patient with recent frequent seizures, clinically more confused without definite seizure now. She received haloperidol prior to EEG, and there is also alprazolam on board. FINDINGS: Much of the record is recorded in drowsing and sleep with symmetric features including occasional K complexes. Brief portions of waking EEG show generalized slowing with polymorphic and rhythmic theta and delta across the frontal and central regions symmetrically. There is not sustained posterior dominant rhythm identified. Photic stimulation did not significantly alter the record. Hyperventilation was not done. There were a few sharply contoured waves, but no definite epileptiform discharge was identified. INTERPRETATION: Abnormal EEG because of generalized slowing while awake. CORRELATION: This is indicative of a diffuse encephalopathy and is nonspecific. There is nothing on this record to suggest ongoing subclinical seizures. cc: MD Moncho Pedraza III, MD MTDD
[2019-03-11] MEDS ORDERED: HALDOL IM PRN ×2 (18:54→18:58)
--- NOTE | 2019-03-11 20:00 | PROGRESS NOTE ---
DATE: 03/11/2019 SUBJECTIVE: This morning, upon my arrival, patient continued to have considerable agitation. She was, however, able to voice my name. She was unaware of her current situation and location. Throughout the day, patient continued to have agitation. A repeat EEG was performed which revealed no evidence of seizure activity. This evening, patient continues to have significant agitation; however, she is more alert. She is able to voice extended sentences, although at times inappropriate. There has been no evidence of fevers, chills, nausea, vomiting, shortness of breath, or chest discomfort. No additional neurological deficits have been identified. OBJECTIVE: Vital Signs: T-max 98.5, heart rate 68 to 77, respirations 17 to 22, blood pressure 134 to 154 over 57 to 74. General: Well nourished, well developed, no acute distress. Cardiovascular: Regular rate and rhythm. No significant murmurs, rubs, or gallops. Pulmonary: Clear to auscultation bilaterally. Abdomen: Soft, nontender, nondistended. Positive bowel sounds. Extremities: Moves all extremities well. No significant clubbing, cyanosis, or edema. Dermatologic: Evaluation reveals no evidence of rash. LABORATORY DATA: None. ASSESSMENT AND PLAN: 1. Alteration of mental status: This is likely secondary to partial seizures and postictal state. At this point, the alteration of mental status persists. This likely is a combination of multiple factors. These factors include partial seizures, medications, advanced age, hospital psychosis, and metabolic etiologies, including recovering hyponatremia and renal failure. Additionally, patient was found to have urinary retention today. At this point, the patient's condition is slightly improved from this morning. We will continue supportive care for now. I appreciate Dr. Barcenas's consultation. 2. Partial seizures: This is a new diagnosis. The patient is currently being loaded with Cerebyx therapy. We will continue to follow this. 3. Headaches: The patient has achieved improvement with better control of her seizures. 4. Hyponatremia: The patient has achieved improvement with intravenous fluids. The last sodium was 137. We will recheck in the morning. 5. Acute renal failure: The patient has achieved significant improvement from admission. We will recheck levels in the morning. 6. Reflux disease: We will continue pantoprazole therapy. 7. Urinary retention: The patient was noted to have significant urinary retention this morning. A Argueta catheter was placed. We will follow this. 8. Hypertension: The patient's enalapril and hydrochlorothiazide have been held. Amlodipine has continued. Blood pressure is slightly elevated at this point. We will consider resuming enalapril in the near future. 9. Hypothyroidism: We will continue patient on replacement. 10. Depression/anxiety: The patient is currently being treated with citalopram and Xanax therapy. We will continue this for now. We will remain aware that each of these could be contributing to her confusion. 11. Disposition: At this point, the patient continues to require [facility] care in a hospital setting. We will plan discharge home once appropriate. cc: Moncho Martinez MD
[2019-03-12] MEDS: NORVASC PO SCH ×2 (02:36→12:25)
[2019-03-12] MEDS: PROTONIX PO SCH (02:37)
[2019-03-12] MEDS: XANAX PO SCH ×3 (02:40→12:24)
[2019-03-12] MEDS: CEREBYX 200 MG in NS 50 ML IV SCH (05:58)
[2019-03-12 07:14] LABS: BASO# 0.05 X1000 (0.0-0.2); BASO% 0.6 % (0.0-0.8); EOS# 0.23 X1000 (0.0-0.7); EOS% 2.7 % (0.0-10.0); HEMATOCRIT 37.9 % (37.0-47.0); HEMOGLOBIN 12.8 g/dL (12.0-16.0); IMM GRAN# 0.04 X1000 (0.0-0.04); IMM GRAN% 0.5 % (0.0-0.5); LYMPH# 3.15 X1000 (1.2-3.4); MCH 29.7 PG (27-31); MCHC 33.8 g/dL (33-37); MCV 87.9 FL (81-99); MONO# 0.77 X1000 (0.11-0.59); MPV 9.9 FL (7.4-10.4); NEUT# 4.28 X1000 (1.4-6.5); NEUT% 50.2 % (42.2-75.2); PLT 370 X1000 (130-400); RBC 4.31 XMIL (4.2-5.4); RDW 14.2 % (11.5-14.5); WBC 8.52 X1000 (4.8-10.8)
[2019-03-12 07:54] LABS: ALB/GLOB RATIO 1.3; ALBUMIN 3.7 g/dL (3.5-5.0); CALCIUM 9.4 mg/dL (8.8-10.2); POTASSIUM 3.4 mmol/L (3.5-5.1); TOTAL BILIRUBIN 0.21 mg/dL (0.20-1.00); TOTAL PROTEIN 6.5 g/dL (6.3-8.3)
[2019-03-12] MEDS: NS 1,000 ML IV SCH (08:12)
[2019-03-12] MEDS ORDERED: MIRALAX PO ONE (11:22)
[2019-03-12] MEDS: SYNTHROID PO SCH (12:25)
[2019-03-12] MEDS: LOVENOX SUBQ SCH (12:25)
[2019-03-12] MEDS: CELEXA PO SCH (12:25)
[2019-03-12] MEDS: VASOTEC PO SCH (13:10)
--- NOTE | 2019-03-12 13:31 | PROGRESS NOTE ---
DATE: 03/12/2019 SUBJECTIVE: Upon my arrival this morning, patient was asking for quiet. The patient noted increased sensitivity to loud sounds. With my discussion, patient was able to carry on a prolonged conversation. She recognized me, as well as every family member in the room. She did continue to have some mild confusion, but did note situation and the fact that she was in the hospital. Overnight, family states she slept well. There has been no evidence of fevers, chills, nausea, vomiting, shortness of breath, or chest discomfort. She does note some increased sensitivity in her scan, as well as some mild abdominal discomfort. OBJECTIVE: Vital Signs: T-max 98.5 degrees, heart rate 66 to 77, respirations 17 to 22, blood pressure 134-163/52-74. General: Well nourished, well developed, no acute distress. Cardiovascular: Regular rate and rhythm. No significant murmurs, rubs, or gallops. Pulmonary: Clear to auscultation bilaterally. Abdomen: Soft, nontender, nondistended. Positive bowel sounds. Extremities: Moves all extremities well. No significant clubbing, cyanosis, or edema. Dermatologic: Evaluation reveals no evidence of rash. LABORATORY DATA: White blood cell count 8.52, hemoglobin 12.8, hematocrit 37.9, platelet count 370,000. Sodium 141, potassium 3.4, chloride 106, bicarbonate 24. BUN 12, creatinine 1.0, glucose 101, calcium 9.4, total bilirubin 0.21, total protein 6.5. Albumin 3.7, alkaline phosphatase 70, AST 14 and ALT 10. ASSESSMENT AND PLAN: 1. Alteration of mental status--this likely is a consequence of partial seizures, postictal state, and new medications. Today, patient notes a profound sensitivity to sounds and touch, but is much more alert. I suspect that this continues to be a consequence of her underlying neurological diagnosis. For now, we will continue supportive care. 2. Partial seizures--the patient is currently being treated with intravenous Cerebyx. Level returned slightly elevated yesterday. We will repeat levels today. We will adjust as necessary. I appreciate Dr. Barcenas's guidance. Electroencephalogram from yesterday demonstrate no evidence of acute seizures. 3. Headaches--the patient's headaches have improved with better control of her seizures. 4. Hyponatremia--patient has achieved resolution with intravenous fluids. 5. Acute renal failure--patient's renal function has returned to baseline. Intravenous fluids have been decreased. We will encourage oral intake. 6. Reflux disease--we will continue patient on pantoprazole therapy. 7. Urinary retention--Argueta catheter has been placed. No evidence of infection was identified. We will consider removing this once her overall condition has improved. 8. Hypertension--the patient's enalapril and hydrochlorothiazide have been held. In the setting of an increasing blood pressure, we will resume enalapril. We will continue amlodipine therapy. 9. Hypothyroidism--we will continue patient on replacement. 10. Depression/anxiety--we will continue patient on citalopram and Xanax therapy. 11. Deep vein thrombosis prophylaxis--we will transition patient from sequential compression devices to Lovenox today. Once again, this will be followed. 12. Constipation--we will start patient on MiraLAX therapy. 13. Disposition--at this point, patient continues to require [facility] care in a hospital setting. We will plan discharge home once appropriate. cc: Moncho Martinez MD
[2019-03-13] MEDS: PROTONIX PO SCH ×2 (01:36→21:56)
[2019-03-13] MEDS: XANAX PO SCH ×4 (01:36→21:56)
[2019-03-13] MEDS: NORVASC PO SCH ×3 (01:36→21:55)
[2019-03-13] MEDS: CEREBYX 200 MG in NS 50 ML IV SCH ×2 (01:37→13:04)
[2019-03-13] MEDS: TYLENOL PO PRN (02:02)
[2019-03-13] MEDS: NS 1,000 ML IV SCH (07:41)
[2019-03-13] MEDS: SYNTHROID PO SCH (08:02)
[2019-03-13] MEDS: VASOTEC PO SCH (08:03)
[2019-03-13] MEDS: CELEXA PO SCH (08:03)
[2019-03-13] MEDS: LOVENOX SUBQ SCH (11:32)
--- NOTE | 2019-03-13 15:33 | PROGRESS NOTE ---
DATE: 03/13/2019 SUBJECTIVE: This morning, upon my arrival, the patient's mentation has noted a significant improvement. Patient is alert to person, place, and situation. The patient's is at bedside and is very encouraged with her improvement. Overnight, she slept well. She is tolerating her medications well at the present time. There has been no evidence of fevers, chills, nausea, vomiting, shortness of breath, or chest discomfort. MiraLAX was provided yesterday, but she has not had a bowel movement today. OBJECTIVE: T-max 98.0 degrees, heart rate 66 to 74, respirations 18 to 22, blood pressure 134- 180/52-76. General: Well nourished, well developed, in no acute distress. Cardiovascular: Regular rate and rhythm. No significant murmurs, rubs, or gallops. Pulmonary: Clear to auscultation bilaterally. Abdomen: Soft, nontender, nondistended. Positive bowel sounds. Extremities: Moves all extremities well. No significant clubbing, cyanosis, or edema. Dermatologic: Evaluation reveals no evidence of rash. Laboratory Data: None. ASSESSMENT AND PLAN: 1. Alteration of mental status-I continue to expect that this likely was secondary to a consequence of partial seizures, postictal state, hospital-acquired psychosis, and new medications. With time, the patient is achieving improvement. We will continue supportive care for now. 2. Partial seizures-patient currently is being treated with intravenous Cerebyx. The patient's level returned slightly elevated; however, with the significant improvement in her symptoms, I am hesitant to make any changes. For now, we will continue her current regimen. We will defer transitioning to oral agents to Dr. Barcenas in the morning. 3. Headaches-patient has achieved significant improvement with headaches with better control of seizures. We will remain aware. 4. Hyponatremia-patient has achieved resolution with intravenous fluids. 5. Acute renal failure-patient has achieved resolution with intravenous fluids. 6. Reflux disease-we will continue pantoprazole therapy. Symptoms are controlled. 7. Urinary retention-patient does have a Argueta catheter placed. As her mentation improves, we will plan to discontinue her Argueta catheter. We will need to determine whether a long-term treatment for retention is necessary. 8. Hypertension-the patient's blood pressure is beginning to increase. She is currently being treated with amlodipine and enalapril therapy. We will monitor through the day today. We will determine if resuming previous dosage of enalapril is appropriate. 9. Hypothyroidism-we will continue patient on replacement. 10. Depression/anxiety-symptoms are reasonably controlled with citalopram and Xanax therapy. 11. Deep venous thrombosis prophylaxis-we will continue subcutaneous Lovenox. 12. Constipation-we will again treat patient with MiraLAX therapy. 13. Disposition-at this point, [facility]. We will plan discharge home once appropriate. cc: Moncho Martinez MD
[2019-03-14] MEDS: CEREBYX 200 MG in NS 50 ML IV SCH (00:36)
[2019-03-14 07:16] LABS: BASO# 0.08 X1000 (0.0-0.2); BASO% 0.8 % (0.0-0.8); EOS# 0.27 X1000 (0.0-0.7); EOS% 2.8 % (0.0-10.0); HEMATOCRIT 39.5 % (37.0-47.0); HEMOGLOBIN 13.2 g/dL (12.0-16.0); IMM GRAN# 0.03 X1000 (0.0-0.04); IMM GRAN% 0.3 % (0.0-0.5); LYMPH# 3.29 X1000 (1.2-3.4); LYMPH% 33.8 % (20.5-51.1); MCH 29.2 PG (27-31); MCHC 33.4 g/dL (33-37); MCV 87.4 FL (81-99); MONO# 0.83 X1000 (0.11-0.59); MONO% 8.5 % (1.7-9.3); MPV 9.9 FL (7.4-10.4); NEUT# 5.24 X1000 (1.4-6.5); NEUT% 53.8 % (42.2-75.2); PLT 350 X1000 (130-400); RBC 4.52 XMIL (4.2-5.4); RDW 14.1 % (11.5-14.5); WBC 9.74 X1000 (4.8-10.8)
[2019-03-14 07:45] LABS: ALB/GLOB RATIO 1.6; ALBUMIN 4.2 g/dL (3.5-5.0); CALCIUM 9.9 mg/dL (8.8-10.2); CREATININE 1.1 mg/dL (0.5-0.9); POTASSIUM 4.3 mmol/L (3.5-5.1); TOTAL BILIRUBIN 0.28 mg/dL (0.20-1.00); TOTAL PROTEIN 6.9 g/dL (6.3-8.3)
[2019-03-14] MEDS: XANAX PO SCH ×3 (07:53→23:35)
[2019-03-14] MEDS: NORVASC PO SCH ×2 (08:49→21:14)
[2019-03-14] MEDS: VASOTEC PO SCH (08:49)
[2019-03-14] MEDS: CELEXA PO SCH (08:49)
[2019-03-14] MEDS: SYNTHROID PO SCH (08:49)
[2019-03-14] MEDS: MIRALAX PO SCH (08:49)
[2019-03-14] MEDS: LOVENOX SUBQ SCH (10:55)
--- NOTE | 2019-03-14 11:20 | PROGRESS NOTE ---
DATE: 03/14/2019 SUBJECTIVE: Ms. Cooper has become much more appropriate. She has not had any more clinically recognized seizure, or other periods of altered awareness or unresponsiveness. She has phenytoin level of 23.9 with 200 mg q.12 hours, and she is tolerating that slightly supratherapeutic level. OBJECTIVE: On exam, she is awake, alert, attentive, and oriented. She discussed recent news with some accurate details. Speech is not dysarthric. Language function is intact. Remote memory is good. Recent memory is fair. She reports remembering coming to the hospital, but I do not think her memory of that is complete. IMPRESSION: 1. Recent frequent partial seizures. This seems to be under control. We will continue phenytoin 200 mg b.i.d., switch that p.o. and add lamotrigine for longer-term management. As her lamotrigine dose is slowly titrated, we can reduce and stop phenytoin. She or family will phone my office next week to discuss lamotrigine titration instructions. She understands to stop both of these medicines immediately if she has skin rash. She will be careful with activities. I encouraged her to let family continue supervising medications. We discussed the rationale for choosing lamotrigine, hoping that will provide some benefit for her baseline anxiety. 2. I still have some concern for baseline cognitive impairment. I think it would be reasonable to check that more thoroughly later as an outpatient, not urgent. I discussed that with patient and daughter at the bedside. Thanks for asking Neurology to see Ms. Cooper. cc: MD Moncho Pedraza III, MD MTDD
--- NOTE | 2019-03-14 21:03 | PROGRESS NOTE ---
DATE: 03/14/2019 SUBJECTIVE: Overall, patient continues to demonstrate improvement. This morning, upon my arrival, patient was alert. She stated she slept well overnight. During the day today, patient participated in physical therapy. She remains very weak and required a walker but participated well. Her Argueta catheter was removed this morning. The patient has voided without incident. Postvoid residual is negligible. Her p.o. intake is adequate. There has been no evidence of fevers, chills, nausea, vomiting, shortness of breath, or chest discomfort. OBJECTIVE: T-max 97.9 degrees, heart rate 67 to 70, respirations 16 to 20, blood pressure 114 to 150 over 56 to 67.General: Well nourished, well developed, no acute distress. Cardiovascular: Regular rate and rhythm. No significant murmurs, rubs, or gallops. Pulmonary: Clear to auscultation bilaterally. Abdomen: Soft, nontender, nondistended. Positive bowel sounds. Extremities: Moves all extremities well. No significant clubbing, cyanosis, or edema. Dermatologic: Evaluation reveals no evidence of rash. LABORATORY DATA: White blood cell count 9.74, hemoglobin 13.2, hematocrit 39.5, platelet count 350,000. Sodium 142, potassium 4.3, chloride 102, bicarb 27, BUN 13, creatinine 1.1, glucose 107, calcium 9.9, total bilirubin 0.28, total protein 6.9, albumin 4.2, alkaline phosphatase 74, AST 28, ALT 34. ASSESSMENT AND PLAN: 1. Alteration of mental status-as described above, symptoms continue to improve. This likely was a consequence of partial seizures, postictal state, hospital acquired psychosis, and the addition of new medications. We will continue supportive care for now. Overall, her condition has improved considerably over the last 48 hours. 2. Partial seizures-I appreciate Dr. Barcenas's consultation. She currently is being treated with intravenous Cerebyx. A plan to transition to oral therapy has been made by Dr. Barcenas. With time, lamotrigine therapy will be titrated up. We will defer this management to Dr. Barcenas. She has had no evidence of seizure activity over the last 48 hours. 3. Headaches-this likely was secondary to seizures. Patient has achieved improvement with better control of the seizure activity. 4. Hyponatremia-patient has achieved resolution with intravenous fluids. 5. Acute renal failure-the patient's creatinine has returned to baseline. We will remain aware. 6. Reflux disease-we will continue pantoprazole therapy. 7. Urinary retention-as above, Argueta catheter has been removed. She has no evidence of retention at present time. We will continue to follow clinically. 8. Hypertension-patient's blood pressure is controlled on her current regimen. 9. Hypothyroidism-we will continue patient on replacement. 10. Depression/anxiety-the patient is reasonably controlled with citalopram and Xanax therapy. We will continue this. 11. Constipation-we will continue patient on MiraLAX therapy. 12. Disposition-at this point, patient continues to require prison care in a hospital setting. We will plan discharge home once appropriate. cc: Moncho Martinez MD
[2019-03-14] MEDS: PROTONIX PO SCH (21:14)
[2019-03-15] MEDS: XANAX PO SCH ×2 (07:43→12:24)
[2019-03-15] MEDS: SYNTHROID PO SCH (08:52)
[2019-03-15] MEDS: NORVASC PO SCH (08:52)
[2019-03-15] MEDS: CELEXA PO SCH (08:52)
[2019-03-15] MEDS: MIRALAX PO SCH (08:53)
[2019-03-15] MEDS ORDERED: LAMICTAL PO SCH (09:00)
[2019-03-15] MEDS ORDERED: DILANTIN PO SCH (09:00)
[2019-03-15] MEDS: VASOTEC PO SCH (09:02)
--- NOTE | 2019-03-15 10:52 | Carotid Study ---
DATE: 03/09/2019 PROCEDURE: Carotid duplex imaging. REFERRING PHYSICIAN: Dr. Moncho Martinez INTERPRETING PHYSICIAN: Dr. Gonzales TECH: Farideh Harris RVT INDICATIONS: Dizziness/syncope. OBSERVED DATA RIGHT LEFT Brachial Blood Pressure Carotid Pulse Bruits: Carotid/Sub DIAGRAM OF ULTRASOUND IMAGING R L RIGHT INT EXT INT EXT LEFT Walter (cm/s) Walter (cm/s) Subclavian 104/0 Subclavian 101/0 CCA Proximal 65/10 CCA Proximal 98/12 CCA Distal 71/13 CCA Distal 73/14 Bulb 57/14 Bulb 71/14 ICA Proximal 77/14 ICA Proximal 59/15 ICA Mid 87/20 ICA Mid 75/18 ICA Distal 93/21 ICA Distal 88/20 ECA 111/3 ECA 108/7 Vertebral 79/13 Vertebral 54/8 ICA/CCA Ratio 1.30 ICA/CCA Ratio 0.90 % Stenosis 0 to 39 % Stenosis 0 to 39 PHYSICIAN INTERPRETATION: Mild atherosclerotic disease of the distal common and internal carotid arteries bilaterally without evidence of a hemodynamically significant lesion in either carotid system. cc: MD Moncho Delgado MD
[2019-03-15] MEDS: LOVENOX SUBQ SCH (11:02)
[2019-03-15 15:06] VITALS: BP 131/63
--- NOTE | 2019-03-15 15:12 | PROGRESS NOTE ---
DATE: 03/15/2019 ROOM: 310. Ms. Cooper is awake, alert, attentive, bright and cheerful today. I believe she may be near her baseline mentally. She has not had any more periods of altered awareness or unresponsiveness. She has tolerated phenytoin 200 mg b.i.d. As discussed at length with patient and family yesterday, we have added lamotrigine with plans to titrate the dose and then consider tapering off of phenytoin. I reviewed those plans with family at the bedside today. She understands to stop lamotrigine if she has skin rash. She or family will phone my office next week and further plans will depend on her report then. Thanks for asking Neurology to see Ms. Cooper. cc: MD Moncho Pedraza III, MD
--- NOTE | 2019-03-16 10:24 | DISCHARGE SUMMARY ---
ADMISSION DATE: 03/09/2019 DISCHARGE DATE: 03/15/2019 ADMISSION DIAGNOSES: 1. Alteration of mental status. 2. Complicated migraines. 3. Dehydration. 4. Depression/anxiety. 5. Acute kidney injury. DISCHARGE DIAGNOSES: 1. Alteration of mental status, multifactorial. 2. Partial seizures, improved. 3. Headaches, improved. 4. Hyponatremia, resolved. 5. Acute renal failure, resolved. 6. Reflux disease, present on arrival. 7. Urinary retention, resolved. 8. Hypertension, present on arrival. 9. Hypothyroidism, present on arrival. 10. Depression/anxiety, present on arrival. CONSULTATIONS: Consultations Dr. Barcenas with Neurology was consulted for further evaluation and management of partial seizures. PROCEDURES: 1. CT chest x-rays performed on 03/08/2019 which revealed emphysema. 2. CT scan of the head was performed on 03/09/2019 which revealed no hemorrhage. Chronic ischemic changes. 3. X-ray of the left hip was performed on 03/09/2019 which revealed no acute injury. 4. Renal ultrasound was performed on 03/09/2019 which revealed borderline mild renal cortical thinning. Otherwise negative examination. 5. Carotid Doppler was performed on 04/09/2019 which revealed mild atherosclerotic disease of the distal common and internal carotid arteries bilaterally without evidence of a hemodynamically significant lesion in either carotid system. 6. EEG was performed on 03/09/2019 which revealed abnormal EEG because of partial and generalized seizures, likely right hemisphere focus number. 7. An EEG was performed on 03/11/2019 which revealed abnormal EEG because of generalized slowing while awake history. HISTORY AND PHYSICAL EXAMINATION: See admit note. PHYSICAL EXAMINATION PRIOR TO DISCHARGE: Vital Signs: Temperature 97.6 degrees, heart rate 68, respirations 14, blood pressure is 131/63. General: Well nourished, well developed, in no acute distress. Cardiovascular: Regular rate and rhythm. No significant murmurs, rubs, or gallops. Pulmonary: Clear to auscultation bilaterally. Abdomen: Soft, nontender, nondistended. Positive bowel sounds. Extremities: Moves all extremities well. No significant clubbing, cyanosis, or edema. Dermatologic: Evaluation reveals no evidence reveals no evidence of rash. LABORATORY DATA: Prior to discharge: None. HOSPITAL COURSE: Hospital course patient was admitted as per history and physical examination. Hospital course per condition is as follows. 1. Alteration of mental status-upon admission, patient was noted to have significant alteration. This likely was a consequence of partial seizures and postictal state. While hospitalized, unfortunately, her condition progressed. This likely was contributed to by hospital acquired psychosis as well as medications. With time, and medication adjustments, patient's overall condition improved considerably. At time of discharge, mentation was at baseline. We will follow this closely as an outpatient. The question has been raised for possible underlying mild dementia. 2. Partial seizure-patient was diagnosed upon admission. Dr. Barcenas was consulted. Intravenous Cerebyx was initiated. The patient's condition improved considerably, but mental status deteriorated within 24-48 hours of initiation of medications. The patient was treated supportively and with time, her mentation returned to baseline as described above. The patient will be discharged on 200 mg Dilantin daily an Lamictal 25 mg twice daily. With time, the plan will be to decrease Dilantin and increase the Lamictal as tolerated. The patient is to follow up with Dr. Barcenas in approximately 1 week. 3. Headaches-upon admission, admission, patient was noted to have considerable headaches. This likely was a consequence of seizure disorder. With treatment of her seizures, headaches resolved. 4. Hyponatremia-upon admission, patient was noted to have mild hyponatremia. This likely was secondary to syndrome of inappropriate antidiuretic hormone secretion in the in the setting of seizure disorder. With intravenous hydration, patient did achieve improvement. 5. Acute renal failure-this likely secondary to volume depleted state. With intravenous fluids, patient achieved improvement. 6. [*]At time of discharge patient was at baseline. 7. Reflux disease-symptoms remained adequately controlled with pantoprazole therapy. 8. Urinary retention-while hospitalized, patient developed urinary retention. A Argueta catheter was placed. As patient's mental status improved, Argueta catheter was removed. At time of discharge, patient was having adequate urine output with no significant residual volume. Patient will be followed as an outpatient. 9. Hypertension-patient has longstanding disease. Her hydrochlorothiazide and enalapril were held initially. At time of discharge, the patient will resume enalapril once daily. We will continue Norvasc from home medication list. We will ask patient to keep a log of her blood pressure between now and next visit. We will determine if mom increasing enalapril back to twice a day is appropriate. 10. Hypothyroidism--patient was maintained on replacement while hospitalized. 11. Depression/anxiety-patient was continued on citalopram and Xanax therapy. We will plan to titrate down on Xanax as an outpatient as tolerated. DISCHARGE CONDITION: Good. DISPOSITION: Discharge to home with home health. MEDICATIONS: 1. Acetaminophen 650 mg every 6 hours as needed. 2. Dilantin 200 mg twice daily. 3. Lamictal 25 mg twice daily. 4. Alprazolam 0.125 mg in the morning and at noon and 0.25 mg at bedtime. 5. MiraLAX 17 g in 8 ounces of juice daily as needed. 6. Amlodipine 2.5 mg twice daily. 7. Citalopram 20 mg daily. 8. Levothyroxine 88 mcg daily. 9. Pantoprazole 40 mg at bedtime. 10. Imitrex 100 mg as needed. 11. Enalapril 20 mg daily. 12. Patient has been instructed to discontinue hydrochlorothiazide. FOLLOWUP: 1. Patient is to follow up with me in approximately 1 to 2 weeks. 2. Patient to follow up with Dr. Barcenas in 1 week. cc: Moncho Martinez MD
== END 2019-03-15 17:16 | disposition home health service (06) | DRG 101 ==
LOC: ED 19:06 → 3N 03-09 02:35 → SUATTDRO 03-09 02:35 → 3N 03-09 21:18
PROVIDERS: ADMIT Internal Medicine; ATTEND Internal Medicine
CPT/HCPCS: 51701; 70450; 71020; 71046; 73502; 76770; 80048; 80053; 80185; 81001; 83605; 84443; 85025; 93880; 95816; 96374; 96375; 97110; 97162; 97530; 99285; A9270; J0780; J1200; J1630; J1650; J1885; J7030; P9612; Q2009